=== PATIENT | female | born 1995 | race African-American/Black ===

== ENCOUNTER 2016-07-29 17:12 | Emergency (ER) | payer OTHER ==
[~2016-07-29] VITALS: Ht 160 cm; Wt 78.5 kg
[~2016-07-29 17:12] MED LIST: FLEXERIL PO; IBUPROFEN 800800 MG PO
[2016-07-29 17:40] LABS: URINE BILIRUBIN NEGATIVE (Negative); URINE BLOOD 1+ (Negative); URINE COLOR YELLOW; URINE GLUCOSE-RANDOM* NEGATIVE (Negative); URINE KETONES NEGATIVE (Negative); URINE LEUKOCYTES-REFLEX NEGATIVE (Negative); URINE PROTEIN (DIPSTICK) NEGATIVE (Negative); URINE SPECIFIC GRAVITY 1.025 (1.003-1.035); URINE UROBILINOGEN 0.2 E.U./dl (0.2-1.0)
[2016-07-29 17:48] LABS: SQUAMOUS >10 Many /LPF (0-3)
[2016-07-29 17:49] LABS: CRYSTALS None Seen /LPF (None Seen); URINE RBC 0-2 Rare /HPF (0-2); URINE WBC-REFLEX 0-5 Rare /HPF (0-5)
[2016-07-29 17:50] LABS: CASTS None Seen /LPF (None Seen)
[2016-07-29] MEDS ORDERED: DOXYCYCLINE 10100 MG PO (18:00)
[2016-07-29] MEDS ORDERED: FLAGYL500 MG PO (18:13)
[2016-07-29 18:44] VITALS: BP 131/76
[2016-07-30 14:15] LABS: CHLAMYDIA TRACHOMATIS-PCR Negative (Negative); NEISSERIA GONORRHEA-PCR Negative (Negative)
== END 2016-07-29 19:05 | disposition home or self-care (01) ==
LOC: ER 17:12
PROVIDERS: Physician Assistant
DX: N72 Inflammatory disease of cervix uteri (principal); N76.0 Acute vaginitis; Z20.2 Contact with and (suspected) exposure to infections with a predominantly sexual mode of transmission